=== PATIENT | male | born 1960 | race Caucasian/White ===

== ENCOUNTER 2017-06-27 13:38 | Observation (INO) | payer BC ==
[2017-06-27] MEDS ORDERED: NS 0.9% 1000 ML* 1,000 ML IV ONE (13:54)
--- NOTE | 2017-06-27 14:14 | RAD ---
Indication: Numbness and slurred speech. CT of the brain was performed without IV contrast. Ventricular structures are midline. No midline shift is noted. The extra-axial spaces are unremarkable. There is no evidence of intracranial hemorrhage. No other high or low density lesions are identified. Mastoid air cells are otherwise unremarkable. There is mucosal thickening of the right ethmoid air cells with suggestion of polyposis in the right NaSal turbinate. IMPRESSION: No intracranial mass or hemorrhage is noted. Chronic sinusitis and possible nasal polyposis. Report called to Dr. Kohler at 1410 hours
[2017-06-27 14:34] LABS: ABS Basophils 0 10^3/ul (0-0.2); ABS Eosinophils 0.1 10^3/ul (0-0.6); ABS Lymphocytes 3.2 10^3/ul (1.0-4.8); ABS Monocytes 0.6 10^3/ul (0-0.8); ABS Nucleated RBC 0 10^3/ul; Eosinophil % 0.9 % (0-6); Hematocrit 44 % (42-52); Lymphocyte % 46.7 % (25-47); Mean Corpuscular HGB Conc 34 g/dl (31-36); Mean Corpuscular Hemoglobin 31 pg (27-31); Mean Corpuscular Volume 91 fL (80-94); Mean Platelet Volume 8.4 um3 (7.4-10.4); Nucleated Red Blood Cells % 0; Platelet Count 207 10^3/ul (150-450); Red Blood Count 4.87 10^6/ul (4.0-5.4); Red Cell Distribution Width 14 % (10.5-15); White Blood Count 6.9 10^3/ul (3.5-10.8)
[2017-06-27 14:38] LABS: Urine Appearance Clear; Urine Blood 1+ (Negative); Urine Color Yellow; Urine Ketones Negative (Negative); Urine Protein Negative (Negative); Urine Specific Gravity 1.023 (1.010-1.030); Urine Urobilinogen Negative (Negative)
[2017-06-27 14:42] LABS: INR 0.95 (0.77-1.02)
[2017-06-27] MEDS ORDERED: NS 0.9% 1000 ML* 1,000 ML IV SCH (14:45)
[2017-06-27 14:53] LABS: EGFR Non-African American 90.2 (>60)
[2017-06-27] MEDS ORDERED: Iohexol 350* (CONTRAST) 500 ML MDV IV ONE (15:09)
--- NOTE | 2017-06-27 15:31 | RAD ---
Indication: Neurologic changes. Single frontal view of the chest performed at 1442 hours was reviewed. No prior study is available for comparison. No mediastinal shift is noted. Heart is of normal size and configuration. Lung rodrigez appear clear. IMPRESSION: NO ACTIVE CARDIOPULMONARY DISEASE IS NOTED.
--- NOTE | 2017-06-27 16:03 | RAD ---
Indication: Right facial droop. Contrast: Administered 80.2 ml of OMNIPAQUE 350 mg/ml CTA of the neck and head was performed without IV contrast administration. Coronal and sagittal reconstructed images were obtained. The origins of the great vessels are unremarkable. The common carotid arteries and internal carotid arteries bilaterally show minimal atherosclerosis. No evidence of carotid artery dissection is noted. The vertebral arteries appear patent bilaterally. There may be calcification of the origin of the left vertebral artery. Intracranial vessels demonstrates no evidence of branch occlusion or aneurysmal dilatation. Patent right-sided and left-sided posterior communicating arteries are noted. Posterior cerebral arteries and basilar artery are unremarkable. The maxillary sinuses demonstrates opacification of the right maxillary sinus with right NaSal polyposis. The orbits are unremarkable. The remainder of the soft tissues of the neck demonstrates scattered lymph nodes. Submandibular glands are unremarkable. Inferior thyroid lobes are unremarkable. Lung apices are unremarkable. IMPRESSION: Minimal atherosclerosis of the origin of left vertebral artery, right internal carotid artery. Intracranial circulation demonstrates no evidence of branch occlusion or aneurysmal dilatation. There is opacification of the right maxillary sinus with soft tissue in the nasal cavity consistent with polyposis.
--- NOTE | 2017-06-27 16:56 | ED ---
Jasper Chand Jennifer, scribed for Jc Kohler MD on 06/27/17 at 1420 . Neurological HPI - HPI Summary HPI Summary: The patient is a 56 year old male who woke up with face numbness at around 10: 00 this morning. The patient reports his tongue was tingling, the top right lip appeared to be lower than the left side of the lip, and there was tingling in his arms. The patient took 325 mg of Aspirin. - History of Current Complaint Chief Complaint: EDNeurologicalDeficit Stated Complaint: NUMBNESS IN FACE/HAND Time Seen by Provider: 06/27/17 13:53 Hx Obtained From: Patient Onset/Duration: Sudden Onset, Started hours ago - 4 hours, Still Present Timing: Constant Onset Severity: Mild Current Severity: Mild Neurological Deficit Location: Facial, RUE Pain Intensity: 0 Pain Scale Used: 0-10 Numeric Character: Numbness/Tingling - face numbness, tongue and arms tingling, Other: - dropping of right upper lip Aggravating: Nothing Alleviating: Nothing Associated Signs and Symptoms: Positive: Numbness - Allergy/Home Medications Allergies/Adverse Reactions: Allergies Allergy/AdvReac Type Severity Reaction Status Date / Time No Known Allergies Allergy Verified 06/27/17 13:42 Home Medications: Home Medications Aspirin 325 mg PO DAILY 06/27/17 [History Confirmed 06/27/17] Atorvastatin* [Lipitor 20 MG*] 20 mg PO DAILY 06/27/17 [History Confirmed ] PMH/Surg Hx/FS Hx/Imm Hx Endocrine/Hematology History: Denies: Hx Diabetes Cardiovascular History: Denies: Hx Hypertension Neurological History: Reports: Hx Transient Ischemic Attacks (TIA) Infectious Disease History: No Infectious Disease History: Denies: Traveled Outside the [place] in Last 30 Days - Family History Known Family History: Positive: Hypertension - Father Negative: Diabetes - Social History Smoking Status (MU): Never Smoked Tobacco Review of Systems Negative: Fever Positive: Numbness - Facial numbness, tongue and arm tingling All Other Systems Reviewed And Are Negative: Yes Physical Exam - Summary Physical Exam Summary: General: well-appearing, no pain distress Skin: warm, color reflects adequate perfusion, dry Head: normal Eyes: EOMI, ANA PAULA ENT: normal Neck: supple, nontender Respiratory: CTA, breath sounds present Cardiovascular: RRR Abdomen: soft, nontender Bowel: present Musculoskeletal: normal, strength/ROM intact Neurological: right facial droop, sensory/motor intact, A&O x3 Psychological: affect/mood appropriate Triage Information Reviewed: Yes Vital Signs On Initial Exam: Initial Vitals Temp Pulse Resp BP Pulse Ox 96.4 F 65 16 127/82 100 06/27/17 13:43 06/27/17 13:43 06/27/17 13:43 06/27/17 13:43 06/27/17 13:43 Vital Signs Reviewed: Yes Diagnostics - Vital Signs Vital Signs Temp Pulse Resp BP Pulse Ox 06/27/17 13:43 96.4 F 65 16 127/82 100 - Laboratory Lab Results: Lab Results 06/27/17 06/27/17 06/27/17 Range/Units 14:09 14:19 14:19 WBC 6.9 (3.5-10.8) 10^3/ul RBC 4.87 (4.0-5.4) 10^6/ul Hgb 15.0 (14.0-18.0) g/dl Hct 44 (42-52) % MCV 91 (80-94) fL MCH 31 (27-31) pg MCHC 34 (31-36) g/dl RDW 14 (10.5-15) % Plt Count 207 (150-450) 10^3/ul MPV 8.4 (7.4-10.4) um3 Neut % (Auto) 43.9 (38-83) % Lymph % (Auto) 46.7 (25-47) % Thurston % (Auto) 8.1 H (0-7) % Eos % (Auto) 0.9 (0-6) % Baso % (Auto) 0.4 (0-2) % Absolute Neuts (auto) 3.0 (1.5-7.7) 10^3/ul Absolute Lymphs (auto) 3.2 (1.0-4.8) 10^3/ul Absolute Monos (auto) 0.6 (0-0.8) 10^3/ul Absolute Eos (auto) 0.1 (0-0.6) 10^3/ul Absolute Basos (auto) 0 (0-0.2) 10^3/ul Absolute Nucleated RBC 0 10^3/ul Nucleated RBC % 0 INR (Anticoag Therapy) 0.95 (0.77-1.02) APTT 31.4 (26.0-36.3) seconds Sodium (139-145) mmol/L Potassium (3.5-5.0) mmol/L Chloride (101-111) mmol/L Carbon Dioxide (22-32) mmol/L Anion Gap (2-11) mmol/L BUN (6-24) mg/dL Creatinine (0.67-1.17) mg/dL Est GFR ( Amer) (>60) Est GFR (Non-Af Amer) (>60) BUN/Creatinine Ratio (8-20) Glucose (70-100) mg/dL POC Glucose (mg/dL) 97 (70-100) mg/dL Lactic Acid (0.5-2.0) mmol/L Calcium (8.6-10.3) mg/dL Total Bilirubin (0.2-1.0) mg/dL AST (13-39) U/L ALT (7-52) U/L Alkaline Phosphatase (34-104) U/L Troponin I (<0.04) ng/mL Total Protein (6.4-8.9) g/dL Albumin (3.2-5.2) g/dL Globulin (2-4) g/dL Albumin/Globulin Ratio (1-3) Triglycerides mg/dL Cholesterol mg/dL LDL Cholesterol mg/dL HDL Cholesterol mg/dL Urine Color Urine Appearance Urine pH (5-9) Ur Specific Dinosaur (1.010-1.030) Urine Protein (Negative) Urine Ketones (Negative) Urine Blood (Negative) Urine Nitrate (Negative) Urine Bilirubin (Negative) Urine Urobilinogen (Negative) Ur Leukocyte Esterase (Negative) Urine WBC (Auto) (Absent) Urine RBC (Auto) (Absent) Urine Bacteria (Absent) Urine Glucose (Negative) Blood Type Antibody Screen 06/27/17 06/27/17 06/27/17 Range/Units 14:19 14:19 14:19 WBC (3.5-10.8) 10^3/ul RBC (4.0-5.4) 10^6/ul Hgb (14.0-18.0) g/dl Hct (42-52) % MCV (80-94) fL MCH (27-31) pg MCHC (31-36) g/dl RDW (10.5-15) % Plt Count (150-450) 10^3/ul MPV (7.4-10.4) um3 Neut % (Auto) (38-83) % Lymph % (Auto) (25-47) % Thurston % (Auto) (0-7) % Eos % (Auto) (0-6) % Baso % (Auto) (0-2) % Absolute Neuts (auto) (1.5-7.7) 10^3/ul Absolute Lymphs (auto) (1.0-4.8) 10^3/ul Absolute Monos (auto) (0-0.8) 10^3/ul Absolute Eos (auto) (0-0.6) 10^3/ul Absolute Basos (auto) (0-0.2) 10^3/ul Absolute Nucleated RBC 10^3/ul Nucleated RBC % INR (Anticoag Therapy) (0.77-1.02) APTT (26.0-36.3) seconds Sodium 137 L (139-145) mmol/L Potassium 3.5 (3.5-5.0) mmol/L Chloride 99 L (101-111) mmol/L Carbon Dioxide 28 (22-32) mmol/L Anion Gap 10 (2-11) mmol/L BUN 19 (6-24) mg/dL Creatinine 0.88 (0.67-1.17) mg/dL Est GFR ( Amer) 116.1 (>60) Est GFR (Non-Af Amer) 90.2 (>60) BUN/Creatinine Ratio 21.6 H (8-20) Glucose 117 H (70-100) mg/dL POC Glucose (mg/dL) (70-100) mg/dL Lactic Acid 2.1 H* (0.5-2.0) mmol/L Calcium 9.8 (8.6-10.3) mg/dL Total Bilirubin 1.10 H (0.2-1.0) mg/dL AST 18 (13-39) U/L ALT 23 (7-52) U/L Alkaline Phosphatase 60 (34-104) U/L Troponin I 0.00 (<0.04) ng/mL Total Protein 7.2 (6.4-8.9) g/dL Albumin 4.5 (3.2-5.2) g/dL Globulin 2.7 (2-4) g/dL Albumin/Globulin Ratio 1.7 (1-3) Triglycerides 138 mg/dL Cholesterol 138 mg/dL LDL Cholesterol 68 mg/dL HDL Cholesterol 42.8 mg/dL Urine Color Urine Appearance Urine pH (5-9) Ur Specific Dinosaur (1.010-1.030) Urine Protein (Negative) Urine Ketones (Negative) Urine Blood (Negative) Urine Nitrate (Negative) Urine Bilirubin (Negative) Urine Urobilinogen (Negative) Ur Leukocyte Esterase (Negative) Urine WBC (Auto) (Absent) Urine RBC (Auto) (Absent) Urine Bacteria (Absent) Urine Glucose (Negative) Blood Type O Positive Antibody Screen Negative 06/27/17 Range/Units 14:19 WBC (3.5-10.8) 10^3/ul RBC (4.0-5.4) 10^6/ul Hgb (14.0-18.0) g/dl Hct (42-52) % MCV (80-94) fL MCH (27-31) pg MCHC (31-36) g/dl RDW (10.5-15) % Plt Count (150-450) 10^3/ul MPV (7.4-10.4) um3 Neut % (Auto) (38-83) % Lymph % (Auto) (25-47) % Thurston % (Auto) (0-7) % Eos % (Auto) (0-6) % Baso % (Auto) (0-2) % Absolute Neuts (auto) (1.5-7.7) 10^3/ul Absolute Lymphs (auto) (1.0-4.8) 10^3/ul Absolute Monos (auto) (0-0.8) 10^3/ul Absolute Eos (auto) (0-0.6) 10^3/ul Absolute Basos (auto) (0-0.2) 10^3/ul Absolute Nucleated RBC 10^3/ul Nucleated RBC % INR (Anticoag Therapy) (0.77-1.02) APTT (26.0-36.3) seconds Sodium (139-145) mmol/L Potassium (3.5-5.0) mmol/L Chloride (101-111) mmol/L Carbon Dioxide (22-32) mmol/L Anion Gap (2-11) mmol/L BUN (6-24) mg/dL Creatinine (0.67-1.17) mg/dL Est GFR ( Amer) (>60) Est GFR (Non-Af Amer) (>60) BUN/Creatinine Ratio (8-20) Glucose (70-100) mg/dL POC Glucose (mg/dL) (70-100) mg/dL Lactic Acid (0.5-2.0) mmol/L Calcium (8.6-10.3) mg/dL Total Bilirubin (0.2-1.0) mg/dL AST (13-39) U/L ALT (7-52) U/L Alkaline Phosphatase (34-104) U/L Troponin I (<0.04) ng/mL Total Protein (6.4-8.9) g/dL Albumin (3.2-5.2) g/dL Globulin (2-4) g/dL Albumin/Globulin Ratio (1-3) Triglycerides mg/dL Cholesterol mg/dL LDL Cholesterol mg/dL HDL Cholesterol mg/dL Urine Color Yellow Urine Appearance Clear Urine pH 5.0 (5-9) Ur Specific Dinosaur 1.023 (1.010-1.030) Urine Protein Negative (Negative) Urine Ketones Negative (Negative) Urine Blood 1+ A (Negative) Urine Nitrate Negative (Negative) Urine Bilirubin Negative (Negative) Urine Urobilinogen Negative (Negative) Ur Leukocyte Esterase Negative (Negative) Urine WBC (Auto) Trace(0-5/hpf) (Absent) Urine RBC (Auto) Absent (Absent) Urine Bacteria Absent (Absent) Urine Glucose Negative (Negative) Blood Type Antibody Screen Result Diagrams: 06/27/17 14:19 06/27/17 14:19 Lab Statement: Any lab studies that have been ordered have been reviewed, and results considered in the medical decision making process. - Radiology CXR Xray Interpretation: No Acute Changes - NO ACTIVE CARDIOPULMONARY DISEASE IS NOTED. Dr. Kohler has reviewed this report. Radiology Interpretation Completed By: Radiologist - CT Brain CT CT Interpretation: No Acute Changes - No intracranial mass or hemorrhage is noted. Chronic sinusitis and possible nasal polyposis. Dr. Kohler has reviewed this report. CT Interpretation Completed By: Radiologist Head CTA CT Interpretation: Positive (See Comments) - Minimal atherosclerosis of the origin of left vertebral artery, right internal carotid artery. Intracranial circulation demonstrates no evidence of branch occlusion or aneurysmal dilatation. There is opacification of the right maxillary sinus with soft tissue in the nasal cavity consistent with polyposis. CT Interpretation Completed By: Radiologist - EKG 14:14 Cardiac Rate: NL EKG Rhythm: Sinus Rhythm - [address] Segment: Normal Ectopy: None NIH Scale - NIH Scale Level of Consciousness: Alert/Keenly Responsive Ask Patient the Month and His/Her Age: Both Correct Ask Pt to Open/Close Eyes and Coil Maker/Release Non-Paretic Hand: Both Correctly Best Gaze (Only Horizontal Eye Movement): Normal Visual Field Testing: No Visual Loss Facial Paresis-Pt to Smile & Close Eyes or Grimace Symmetry: Minor Paralysis Motor Function - Right Arm: No Drift-Holds 10 Seconds Motor Function - Left Arm: No Drift-Holds 10 Seconds Motor Function - Right Leg: No Drift-Holds 10 Seconds Motor Function - Left Leg: No Drift-Holds 10 Seconds Limb Ataxia-Must be out of Proportion to Weakness Present: Absent Sensory (Use Pinprick to Test Arms/Legs/Trunk/Face): Normal Best Language (Describe Picture, Name Items): No Aphasia Dysarthria (Read Several Words): Normal Extinction and Inattention: No Abnormality Total Score: 1 Course/Dx - Course Course Of Treatment: Medications reviewed. BP noted and advised to follow up with PCP. DISCUSSED WITH [facility]. DISCUSSED WITH [facility], DR CHOU. ADMIT HOSPITALIST. CRITICAL CARE TIME LES THAN 30 MINUTES. - Diagnoses Provider Diagnoses: Elevated BP without diagnosis of hypertension, CVA (cerebral vascular accident) - Physician Notifications Discussed Care Of Patient With: Slim Bowers Time Discussed With Above Provider: 16:30 Instructed by Provider To: Admit As Inpatient - I also consulted with Dr. Chou , neurology. Discharge - Sign-Out/Discharge Documenting (check all that apply): Discharge - Discharge Plan Condition: Stable Disposition: ADMITTED TO [facility] Referrals: No Primary Care Phys,NOPCP [Primary Care Provider] - Additional Instructions: Your blood pressure was elevated during todays visit; please follow up with your primary care provider within a week for further evaluation Follow up with your primary care physician in three days. Return to the emergency department for any new or worsening symptoms. - Billing Disposition and Condition Condition: STABLE Disposition: [facility]OSP-[facility] The documentation as recorded by the Jasper nieto Jennifer accurately reflects the service I personally performed and the decisions made by me, Jc Kohler MD.
[2017-06-27] MEDS ORDERED: Simethicone TAB* 80 MG TAB.CHEW PO PRN (18:01)
[2017-06-27] MEDS ORDERED: Calcium Carbonate CHEW TAB* 500 MG (TUMS) PO PRN (18:01)
[2017-06-27] MEDS: Heparin VIAL(*) 5000 UNITS/ML VIAL (FIVE THOUSAND) SUBCUT SCH (21:36)
--- NOTE | 2017-06-27 22:25 | HP ---
CC: Dr. Caicedo* HISTORY AND PHYSICAL: DATE OF ADMISSION: 06/27/17 ATTENDING PHYSICIAN: Dr. Bowers* (report dictated by Evita Sutherland, SAUMYA). PRIMARY CARE PROVIDER: Dr. Caicedo in [place], [place]. DISCHARGE DOOR OPERATOR: Dr. Murphy in [place], [place]. CHIEF COMPLAINT: Numbness and tingling of the right face, tongue, arm, and leg. HISTORY OF PRESENT ILLNESS: Mr. Quach is a 56-year-old male with a past medical history of hyperlipidemia and history of TIA in 2009, who is in town for his daughter's [employer] alumni weekend, who presents to the emergency department today with report of worsening onset of right-sided tongue numbness and tingling, right facial numbness and tingling, right arm tingling, and left lower extremity numbness and tingling. 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 He reports that initially he was having some GI discomfort reporting some bloating and feeling like he needed to belch and could not. He then developed some mild right-sided tongue numbness and tingling and decided to go to the pharmacy and bought Susu aspirin 81 mg and was taking that daily. He reported these symptoms to be intermittent with his tongue numbness and tingling , then reported Thursday at work he did not feel well and he experienced the right tongue numbness and thought maybe his lip was "droopy." He then went to the pharmacy and bought aspirin 325 mg and started taking that. Today, he reports he woke up around 4 a.m. and felt that he needed to belch, but could not. He fell back to sleep and when he woke up at 10 a.m., he noted he had worsening right tongue numbness and tingling as well as right arm and right leg. He denies any speech changes. No gait abnormalities. He decided to come to the emergency department for further evaluation. Currently, in the emergency department, these symptoms have resolved. He currently denies any vision changes, but states over the past 2 weeks, he actually felt that his vision was "more blurry than normal" and made an eye appointment. He denies headache. He also reports when he was lying in bed last night, it was concerning as he felt like he wanted to swallow, but could not coordinate the action of swallowing and then when he relaxed, he was able to do so. Currently , he denies any difficulty swallowing. He reports in 2009, he was hospitalized and diagnosed with a TIA. Only other history is hyperlipidemia, for which he is followed by a antique clocks repairer, Dr. Murphy at [facility]. PAST MEDICAL HISTORY: Hyperlipidemia. MEDICATIONS: Lipitor 20 mg p.o. daily. ALLERGIES: No known allergies. FAMILY HISTORY: His father had a history of prostate cancer and had a pacemaker. His mother is healthy. Both of his parents are alive. No history of stroke. SOCIAL HISTORY: Denies history of tobacco abuse. Social alcohol use, reporting maybe once a month. He currently lives at home with his Carrie Quach who is his healthcare proxy. Her cell phone number is [phone]. He has 3 children. His occupation is entry level staff accountant. REVIEW OF SYSTEMS: He denies any recent fevers, upper respiratory illnesses. He reports good appetite. No chest pain or shortness of breath. He denies lower extremity edema. No orthopnea. He denies any cough, hemoptysis. No nausea, vomiting, diarrhea, abdominal pain. He denies abdominal bloating, but reports the sensation of difficulty feeling that he needs to belch and cannot do so. Denies any urinary symptoms. Neuro symptoms, please see in the HPI. Denies any rashes, lesions, open wounds. Reports some mild anxiety. PHYSICAL EXAMINATION GENERAL APPEARANCE: A well-developed 56-year-old male, sitting up on the emergency department stretcher, in no acute distress, alert and oriented x3. VITAL SIGNS: Temperature 96.4, heart rate 80, respirations 17, O2 sat 100% on room air, blood pressure 127/73. HEENT: Head is normocephalic, atraumatic. Pupils are equal and reactive to light. Oropharynx is clear. Moist mucous membranes. Good dentition. NECK: Supple. RESPIRATORY: Lungs are clear to auscultation bilaterally. Good aeration throughout. CARDIAC: S1, S2. Regular rate and rhythm. No murmur, rub, or gallop appreciated. No lower extremity edema noted. ABDOMEN: Soft, nontender, nondistended. Normal bowel sounds throughout. MUSCULOSKELETAL: No clubbing, cyanosis, or edema. Full range of motion. Strength is 5/5 throughout. SKIN: No rashes, lesions, open wounds noted. NEURO: Cranial nerves II through XII grossly intact. Moves all extremities. No pronator drift. [id number] test intact. Extraocular movements intact. Sensation to lower extremities intact to light touch. PSYCHIATRIC: Appropriate. DIAGNOSTIC STUDIES/LAB DATA: Sodium 137, potassium 3.5, chloride 99, carbon dioxide 28, anion gap 10, BUN 19, creatinine 0.88, glucose 117, lactic acid 2.1 , calcium 9.8, total bilirubin 1.10, AST 18, ALT 23, alkaline phosphatase 60. Troponin 0.00. Total protein 7.2, albumin 4.5, triglycerides 138, cholesterol 138, LDL 68, HDL 42. INR is 0.95. WBC is 6.9, RBC 4.87, HGB 15.0, HCT 44, MCV 91, MCH 31, MCHC 34, RDW 14, platelet count 204,000. Urinalysis negative other than 1+ blood. Mart CT, impression: No intracranial mass or hemorrhages noted. Chronic sinusitis and possible nasal polyposis. He underwent a head CTA, which showed "minimum atherosclerosis of the origin of the left cerebral artery, right internal carotid artery. Intracranial circulation demonstrates no evidence of branch occlusion or aneurysmal dilation. There is opacification of right maxillary sinus with soft tissue in the nasal cavity consistent with polyposis." Chest x-ray, impression: No active cardiopulmonary disease is noted. EKG: Sinus rhythm with a rate of 64. No EKG to compare. No ischemia noted. ASSESSMENT AND PLAN: Mr. Quach is a 56-year-old male with a past medical history of transient ischemic attack in 2009, hyperlipidemia, who presents to the emergency department today with report of worsening right-sided numbness and tingling. 1. Transient ischemic attack. The patient will be admitted to the hospitalist service and admitted to telemetry for further monitoring. He took 325 mg aspirin prior to coming to the emergency department. He will be continued on aspirin 81 mg p.o. daily. Continue his Lipitor 20 mg p.o. daily. Obtain fasting lipid profile in the morning. Plan for transthoracic echocardiogram tomorrow. I spoke with Dr. Cali, neurologist, who will consult on the patient tomorrow. All the patient's symptoms have resolved at this time. He will be monitored on telemetry. We will add on thyroid, B12 levels. The ER physician, Dr. Kohler, spoke to telestroke, reports the patient is out of the window and recommended continued transient ischemic attack workup. Please note in review of the ER physician's note as well as the nursing notes, it was reported that possible slurred speech, occasional difficulty swallowing, and right-sided facial droop were noted upon arrival, which appear at this point to have resolved. 2. Elevated lactic acid. No signs of infectious process. Most likely, this is secondary to possibly dehydration. He has received 2 L of normal saline in the emergency department. We will recheck this evening. 3. Hyperlipidemia. Continue home dose of Lipitor 20 mg p.o. daily. 4. Deep venous thrombosis. Heparin subcu. HOSPITAL STATUS: Observation. TIME SPENT: Approximately 60 minutes were spent on this admission. This case was discussed with Dr. Bowers, who agrees with the plan of care. EVITA SUTHERLAND, SAUMYA [id number]/CPS #: [id number] KALI
[2017-06-28] MEDS: Heparin VIAL(*) 5000 UNITS/ML VIAL (FIVE THOUSAND) SUBCUT SCH (04:47)
[2017-06-28 06:06] LABS: ABS Basophils 0 10^3/ul (0-0.2); ABS Eosinophils 0.1 10^3/ul (0-0.6); ABS Lymphocytes 3.1 10^3/ul (1.0-4.8); ABS Monocytes 0.6 10^3/ul (0-0.8); ABS Neutrophils 2.9 10^3/ul (1.5-7.7); ABS Nucleated RBC 0 10^3/ul; Eosinophil % 1.1 % (0-6); Hematocrit 42 % (42-52); Hemoglobin 14.5 g/dl (14.0-18.0); Lymphocyte % 46.6 % (25-47); Mean Corpuscular HGB Conc 34 g/dl (31-36); Mean Corpuscular Hemoglobin 31 pg (27-31); Mean Corpuscular Volume 90 fL (80-94); Mean Platelet Volume 8.3 um3 (7.4-10.4); Nucleated Red Blood Cells % 0.2; Platelet Count 183 10^3/ul (150-450); Red Blood Count 4.72 10^6/ul (4.0-5.4); Red Cell Distribution Width 13 % (10.5-15); White Blood Count 6.7 10^3/ul (3.5-10.8)
[2017-06-28 06:25] LABS: EGFR Non-African American 123.6 (>60)
[2017-06-28] MEDS ORDERED: Aspirin 81 mg CHEW TAB* 81 MG TAB.CHEW PO SCH (09:00)
[2017-06-28] MEDS ORDERED: Atorvastatin* 20 MG TAB PO SCH (09:00)
--- NOTE | 2017-06-28 11:07 | PN ---
Subjective Date of Service: 06/28/17 Interval History: Patient seen and examined at bedside. Denies fever, chills, shortness of breath , chest discomfort, N/V/D. Pt states that the numbness he was experiencing has resolved. He reports indigestion. Tele: Sinus yefri to sinus rhythm, rate 50-80's Family History: Unchanged from Admission Social History: Unchanged from Admission Past Medical History: Unchanged from Admission Objective Active Medications: Aspirin (Aspirin 81 Mg Chew Tab*) 81 mg PO DAILY KAT Atorvastatin Calcium (Lipitor*) 20 mg PO DAILY KAT Calcium Carbonate (Tums*) 500 mg PO Q4H PRN Reason: INDIGESTION Heparin Sodium (Porcine) (Heparin Vial(*)) 5,000 units SUBCUT Q8HR KAT Simethicone (Mylicon Tab*) 80 mg PO Q6H PRN Reason: INDIGESTION Vital Signs - 8 hr 06/28/17 06/28/17 06/28/17 03:15 04:22 07:23 Temperature 97.5 F 97.5 F 98.3 F Pulse Rate 74 74 65 Respiratory 20 20 16 Rate Blood Pressure 131/69 131/69 136/81 (mmHg) O2 Sat by Pulse 98 98 99 Oximetry Oxygen Devices in Use Now: None Appearance: NAD, sitting up in bed Respiratory: Symmetrical Chest Expansion and Respiratory Effort, Clear to Auscultation Cardiovascular: NL Sounds; No Murmurs; No JVD, RRR Abdominal: NL Sounds; No Tenderness; No Distention Skin: No Rash or Ulcers Neurological: Alert and Oriented x 3, NL Muscle Strength and Tone Lines/Tubes/Other Access: Clean, Dry and Intact Peripheral IV - site benign Nutrition: Taking PO's Result Diagrams: 06/28/17 05:48 06/28/17 05:48 Additional Lab and Data: Assess/Plan/Problems-Billing Assessment: Mr. Quach is a 56 yo male with PMH significant for TIA and HLD who presented to the emergency room with complaints of worsening right sided numbness and tingling. - Patient Problems (1) TIA (transient ischemic attack) Comment: - Symptoms have resolved - Neurology consult, input appreciated - Continue ASA and statin - Will complete neuro work-up outpatient in home town (2) Elevated lactic acid level Code(s): R79.89 - OTHER SPECIFIED ABNORMAL FINDINGS OF BLOOD CHEMISTRY SNOMED Code(s): 0845780 Comment: - Resolved - No signs of infectious process - Suspect secondary to dehydration (3) HLD (hyperlipidemia) Code(s): E78.5 - HYPERLIPIDEMIA, UNSPECIFIED SNOMED Code(s): 41157933 Comment: - Continue statin (4) DVT prophylaxis Code(s): YSW5759 - SNOMED Code(s): 866111986 Comment: - SQ heparin (5) Full code status Code(s): Z78.9 - OTHER SPECIFIED HEALTH STATUS SNOMED Code(s): 410740593 Status and Disposition: OBV. Stable for discharge to home today.
[2017-06-28 12:55] VITALS: BP 133/82
--- NOTE | 2017-06-28 14:09 | CONS ---
CC: Rahel Nam NP; Dr. Caicedo, [place], [place]; Dr. Murhpy, [place], [place] NEUROLOGY CONSULTATION: DATE OF CONSULT: 06/28/17 REQUESTING PROVIDER: Rahel Nam NP PRIMARY CARE PROVIDER: Dr. Caicedo. MARKETING AUTOMATION MANAGER: Dr. Murphy. REASON FOR CONSULT: Right-sided sensory changes. HISTORY OF PRESENT ILLNESS: Mr. Quach is a 56-year-old right-handed man with a history of hyperlipidemia as well as TIA in 2009, who presented to the emergency department yesterday with right tongue and cheek paresthesias as well as right arm numbness and right leg heaviness. He describes that over the past week to week and a half, he has been having intermittent periods of numbness of the right side of his tongue, which could last up to 2 hours at a time. With the onset of these symptoms this past Thursday, he he began taking 81 mg of aspirin which he did Thursday and Thursday, then felt better on Thursday and and so did not take any. On Thursday morning, he woke up and again had some intermittent tongue numbness and tingling, but did not have his aspirin with him, so he bought 325 mg of aspirin and took that. With that, on Thursday, he thought that his right side of his face appeared a little bit droopy when he attempted to smile and he had some difficulty getting his words out. Yesterday , around 10 a.m., on their way up to [place], he began noticing some tongue numbness and tingling again but did not mention this to his . Later, they were attending their daughter's alumni game at [facility] and he had some difficulty climbing the bleachers where he said his right leg felt heavy and so he had to concentrate on climbing the bleachers whereas typically it is an automatic process. He denied any numbness in the right leg. They were eating a sandwich and his said he had some bits of food dropping and he seemed very deliberate in everything he was doing, but she did not notice any patito facial asymmetry. He felt that he may have been drooling, but again his did not notice this. She did not notice any slurred speech. He also developed some numbness in his right arm and at that point, she could tell that he appeared stressed and so suggested that he come to the emergency department for further evaluation. Upon his arrival in the emergency department yesterday, his symptoms had resolved and they have not recurred. 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 He also had one episode the night before last when he woke up out of sleep and briefly felt as though he could not swallow, but then this spontaneously resolved. With his reported TIA in 2009, he describes difficulty getting his words out and left facial drooping. He was admitted to the hospital and recalls having testing, which he believes included MRI scan of the brain and to his recollection nothing aside from a nasal polyp was found. It was recommended that he take aspirin 81 mg, but shortly after his discharge, he says the physician told him he did not need to take it any longer and so he has not been on it until the past week and a half and only intermittently after that. 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 In addition, 5 or 6 days ago, one of his coworkers who was 57 years old suddenly and he does not know the cause of at this point. He chronically does not sleep much, getting only about 6 hours per night and his indicates that he snores and has apnea , but has never had testing for sleep apnea. He was admitted for TIA workup and at this point feels ready to leave the hospital. PAST MEDICAL HISTORY: Hyperlipidemia. MEDICATIONS: 1. Lipitor 20 mg daily. 2. More recently aspirin 81 mg and then 325 mg daily intermittently. ALLERGIES: No known drug allergies. FAMILY HISTORY: His father had prostate cancer and atrial fibrillation, on warfarin, and suffered a stroke at the age of 66 when he was taken off warfarin for surgery. His mother has a history of alcoholism and chronic smoking, but is healthy otherwise. They indicate that she is in recovery from alcoholism. He has siblings whom he says are healthy. SOCIAL HISTORY: He is a nonsmoker and drinks alcohol occasionally. He denies any illicit drugs use. 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 REVIEW OF SYSTEMS: Aside from as mentioned in the HPI, he indicates that he has had some epigastric burning associated with sensation that he needed to belch, but was unable to do so. Tums has not improved this. He otherwise denies any new breathing difficulties, heart palpitations, chest pain, joint swelling or erythema, skin rashes, etc. PHYSICAL EXAM: Vital Signs: Temperature 98.3, blood pressure 136/81, heart rate 65, and oxygen saturation 99% on room air. In review of his telemetry, there have been no episodes of arrhythmia. On general exam, he is in no acute distress. His heart is in a regular rate and rhythm with no murmurs, rubs, or gallops. There are no carotid bruits. The lungs are clear to auscultation bilaterally. He has no lower extremity edema. His skin is intact. On neurologic exam, he is fully awake, alert, and oriented. He gives an excellent history. His speech is fluent without dysarthria or aphasia. On cranial nerve testing, pupils are equal, round, and reactive from 2 to 1 mm bilaterally. Versions are full without nystagmus. Childers are full to confrontation. Facial sensation and musculature is full and symmetric. Hearing is intact to finger rub. Palate elevates symmetrically and the tongue is midline. Shoulder shrug is full and symmetric. On motor examination, he has normal bulk and tone in the upper and lower extremities. Strength is full proximally and distally with no pronator drift. Sensation is intact to temperature in the upper and lower extremities. He seemed to have very mildly decreased vibratory sensation in the left great toe, but not the right great toe. Reflexes were 2+ throughout with downgoing toes. Finger- to-nose and heel -to-rivas was intact without ataxia. His gait is narrow based and stable and he is able to heel-toe and tandem walk. DIAGNOSTIC STUDIES/LAB DATA: His CBC was unremarkable. CMP shows slightly low sodium of 137, which has been stable this morning; slightly elevated glucose of 103; initially elevated lactate of 2.1, but this came down to 1.1 on recheck. Vitamin D level of 18.9, B12 of 283. TSH 1.3, free T4 of 1.22, and free T3 of 3.5. Fasting lipid profile this morning shows triglycerides 106, total cholesterol 132, LDL 75, and HDL 36.3. His LFTs were normal and total bilirubin was slightly elevated at 1.1. Urinalysis showed 1+ blood and otherwise was negative. INR and PTT were normal. I reviewed his noncontrast brain CT, which was unremarkable for any intracranial abnormality. I also personally reviewed his CT angiogram of the head and neck, which overall was unremarkable aside from showing minimal atherosclerotic changes of the right internal carotid artery and potentially the origin of the left vertebral artery, but really no significant stenosis, occlusions, or vascular abnormalities. IMPRESSION AND PLAN: London Quach is a 56-year-old right-handed man with the history of transient ischemic attack in 2009, who has been experiencing intermittent episodes of right tongue numbness and paresthesias and then yesterday experienced additional symptoms of right arm numbness, right leg heaviness, and possibly some difficulty with the strength on the right side of his face. These symptoms spontaneously resolved. He has been under increased stress lately. I discussed with him that his workup thus far has been normal and there is no clear reason on his angiogram why he should have recurrent ischemic symptoms in a single arterial territory, making recurrent TIAs a less likely explanation. Neurologically, he is stable today and I would recommend that he continue taking an aspirin 81 mg daily as well as his 20 mg Lipitor daily. He should follow up as soon as possible with his primary care physician or the covering physician as he indicates that his PCP is out on a medical leave right now. I think as an outpatient he should have a followup MRI scan of the brain and a local consultation with Neurology as an outpatient to review that study in the context of his history and these recent symptoms. I told him that the differential for recurrent symptoms such as he has had would also possibly include seizure, but again there is no clear etiology from his history or his CAT scan why this would be the case. Finally, he has as mentioned been under a lot of stress lately and it is possible that these symptoms could be stress/psychogenic related but I think further workup as described above would be in order as an outpatient when he gets home. I did let him know that his vitamin D level is low and that he should take 2000 units daily of vitamin D3, which is available over the counter. We also discussed that for his epigastric symptoms, he could trial a PPI such as Nexium or Prilosec, but should also discuss this further with his primary care physician. Finally, a sleep study should be considered as an outpatient. Thank you for this consultation. [id number]/[facility] #: [id number] KALI
--- NOTE | 2017-06-29 00:38 | DS ---
CC: [facility] in [place]; Dr. Siri Cali* DISCHARGE SUMMARY: DATE OF ADMISSION: 06/27/17 DATE OF DISCHARGE: 06/28/17 ATTENDING PHYSICIAN: Dr. Vicky Kowalski* (dictated by Beulah Chinchilla NP). PRIMARY CARE PROVIDER: Currently, the patient's primary care provider is out on medical leave. He will be trying to follow up with [facility] in [place], [place]. PRIMARY DIAGNOSIS: Transient ischemic attack. SECONDARY DIAGNOSES: 1. Elevated lactic level, resolved, suspect secondary to dehydration. 2. Hyperlipidemia. CONSULTATIONS WHILE IN THE HOSPITAL: Dr. Siri Cali with Neurology. STUDIES WHILE IN THE HOSPITAL: 1. Brain CT on 06/27/17. Radiologist's impression: No intracranial mass or hemorrhages noted. Chronic sinusitis and possibly nasal polyposis. 2. Chest x-ray on 06/27/17. Radiologist's impression: No active cardiopulmonary disease is noted. 3. Head CTA on 06/27/17. Radiologist's impression: Minimal atherosclerosis of the origin of the left vertebral artery, right internal carotid artery. Intracranial circulation demonstrates no evidence for branch occlusion or aneurysmal dilation. There is opacification of the right maxillary sinus with soft tissue in the nasal cavity consistent with polyposis. DISCHARGE MEDICATIONS: New home medications: 1. Vitamin D3 2000 units oral daily. 2. Omeprazole 20 mg oral daily. Continued home medications: 1. Atorvastatin 20 mg oral daily. 2. Aspirin 81 mg oral daily. HISTORY OF PRESENT ILLNESS/HOSPITAL COURSE: Mr. Quach is a 56-year-old male with past medical history significant for TIA and hyperlipidemia who was in town visiting his daughter at [employer] alumni weekend when he developed worsening right-sided tongue numbness and tingling with right-sided facial numbness and tingling, right arm tingling and left lower extremity numbness and tingling. The patient states that he has been under a lot of stress lately with work. He has been also having some GI discomfort with bloating and feeling like he needed to belch with indigestion. He went to the pharmacy and got aspirin 81 mg daily and has been taking that since he developed some right- sided tongue numbness and tingling. He reported these symptoms as intermittent and then on Thursday, he also felt as though his loop may have been "droopy." He then went to the pharmacy and brought 325 mg of aspirin and started taking that. The patient awoke at 4 a.m. on the day of presentation, noted that he needed to belch, but was unable to. He went back to sleep, woke up at 10 a.m. and noted increased in the tongue numbness and tingling in addition to right arm and leg tingling. He had no gait abnormalities. He decided to present to the emergency room for further evaluation of his symptoms. While in the emergency room, he had a head CT showing no significant findings. He had labs that showed a mild elevated lactic acid of 2.1. He had a negative urinalysis. He had a head CT with no significant findings that showed minimal atherosclerosis at the origin of the left cerebral artery, right internal carotid artery. He had a chest x-ray with no acute findings. He had an EKG without significant findings. The case was discussed with Dr. Cali in addition to the emergency room had tele stroke conference with the [facility]. In regards to the patient, it was recommended he be admitted for a TIA workup. While in the hospital, the patient's symptoms resolved. He continued to have complaints of indigestion. He did not want to stay to have a TTE and wish to go home and have a further workup back at his home in [place]. The patient was also seen in consultation by Dr. Cali who agreed with discharge with further outpatient workup. Mr. Quach is stable for discharge today. Vital signs are as follows: Temperature 97.8, heart rate 61, respiratory rate 16, O2 sat 99% on room air, blood pressure 133/82. DISCHARGE PLAN: Mr. Quach will be discharged to home. Activity as tolerated. He should be on a heart healthy diet. In regards to possible TIA, he is continue taking aspirin 81 mg oral daily. He was noted to have a low vitamin D3 level and he has been started on 2000 units of vitamin D3 daily. In regards to his indigestion, he has been started on omeprazole 20 mg oral daily. He has been asked to follow up in the office covering for his primary care provider at [facility]. He will call Thursday to set up an appointment and he has been provided with medical records to take with him including radiology images. The patient has been asked to return to the emergency room for any chest pain, shortness of breath, signs of stroke such as trouble with speech slurred, facial drooping, one-sided weakness. POINTS OF DISCUSSION AT FOLLOWUP: The patient needs to have an MRI outpatient and likely an outpatient neurology consult based off the MRI. She will also consider having an EEG outpatient to complete his workup. There is a component of whether stress is contributing to his symptoms and I would discuss stress management with him. The patient would also likely benefit from having a TTE outpatient to evaluate for a possible patent foramen ovale. This is a summarized report of a complex medical history and hospital stay. For further details, please see the entire medical record. TIME SPENT: Time for this discharge was approximately 50 minutes, greater than half of that was spent with the patient discussing discharge plans and instructions. CONDITION ON DISCHARGE: Stable. BEULAH CHINCHILLA NP [id number]/[facility] #: [id number] KALI
== END 2017-06-28 14:30 | disposition home or self-care (01) ==
LOC: ED 13:38 → MEDTELE 16:56
PROVIDERS: ADMIT Internal Medicine; ATTEND Hospitalist
DX: G45.9 Transient cerebral ischemic attack, unspecified (principal); E78.5 Hyperlipidemia, unspecified; R74.0 Nonspecific elevation of levels of transaminase and lactic acid dehydrogenase [LDH]; Z79.899 Other long term (current) drug therapy; R94.31 Abnormal electrocardiogram [ECG] [EKG]
CPT/HCPCS: 36415; 70450; 70496; 70498; 71045; 80048; 80053; 80061; 81003; 81015; 82306; 82607; 83605; 83735; 84439; 84443; 84481; 84484; 85025; 85610; 85730; 86850; 86900; 86901; 87086; 93005; 96360; 96361; 96372; 99285; A9270-GY; G0378; J1644; Q9967